=== PATIENT | male | born 1980 | race Caucasian/White ===

== ENCOUNTER 2018-04-22 09:19 | Emergency (ER) | payer OTHER ==
[2018-04-22] MEDS ORDERED: Ibuprofen 600 MG Tab PO ONE (09:33)
--- NOTE | 2018-04-22 09:35 | EDM.PDOC ---
ED HPI GENERAL MEDICAL PROBLEM - General Stated Complaint: FELL HURT ANKLE/SPLIT HEAD Time Seen by Provider: 04/22/18 09:34 Source of Information: Reports: Patient History Limitations: Reports: No Limitations - History of Present Illness INITIAL COMMENTS - FREE TEXT/NARRATIVE: Patient comes emergency department today with complaints of an injury to his right ankle. Just prior to arrival the patient was at work when he stepped into a hole falling injuring his right ankle as well as striking his scalp sustaining a laceration. He has no loss of consciousness. He denies a headache. No change in his visual acuity. No neck or back pain. No syncope. No change in his visual acuity. No paresthesias of his upper or lower extremity. No change in the functionality of his upper and lower extremities. His last tetanus immunization was approximately 3 years ago. He does complain of pain to the lateral aspect of his right ankle. He denies any paresthesias of the left lower extremity. He has not taken anything for pain prior to arrival. He is unable to bear weight due to pain. Right Head Pain Score (Numeric/FACES): 8 - Related Data Allergies Allergy/AdvReac Type Severity Reaction Status Date / Time No Known Allergies Allergy Verified 04/22/18 09:24 Home Meds: Home Meds traZODone HCl [Trazodone HCl] 50 mg PO BEDTIME 04/22/18 [History] Review of Systems - Review of Systems Review Of Systems: ROS reveals no pertinent complaints other than HPI. ED EXAM, GENERAL - Physical Exam Exam: See Below Exam Limited By: No Limitations General Appearance: Alert, WD/WN, No Apparent Distress Eye Exam: Bilateral Eye: EOMI, Normal Inspection, PERRL Ears: Normal External Exam, Normal TMs Nose: Normal Inspection, Normal Mucosa Throat/Mouth: Normal Inspection, Normal Oropharynx Head: Normocephalic, Other (On the right frontal scalp region is a transverse linear laceration that does extend minimally into the subcutaneous tissue that is approximately 3 cm in length no active bleeding. There is no bony deformity crepitus bogginess.) Neck: Normal Inspection, Supple, Non-Tender, Full Range of Motion. No: Tender Lateral, Tender Midline Respiratory/Chest: No Respiratory Distress, Lungs Clear, No Accessory Muscle Use Cardiovascular: Normal Peripheral Pulses, Regular Rate, Rhythm Peripheral Pulses: 2+: Radial (L), Radial (R), Posterior Tibial (L), Posterior Tibial (R), Dorsalis Pedis (L), Dorsalis Pedis (R) GI/Abdominal: Normal Bowel Sounds, Soft, Non-Tender Back Exam: Normal Inspection, Full Range of Motion. No: Muscle Spasm, Paraspinal Tenderness, Vertebral Tenderness Extremities: Non-Tender, No Pedal Edema, Normal Capillary Refill, Joint Swelling (swelling to the right lateral malleolus. ), Limited Range of Motion ( right ankle. ) Neurological: Alert, Oriented, CN II-XII Intact, Normal Cognition, Normal Reflexes, No Motor/Sensory Deficits Psychiatric: Normal Affect Skin Exam: Warm, Dry, Intact, Normal Color, No Rash Lymphatic: No Adenopathy ED TRAUMA EXTREMITY PROCEDURES - Laceration/Wound Repair Right Forehead Lac/Wound Length In cm: 3.1 (right cephalad scalp hair line) Appearance: Subcutaneous, Linear, Clean Distal NVT: Neuro & Vascular Intact Anesthetic Type: Local Local Anesthesia - Lidocaine (Xylocaine): 1% with EPI Local Anesthetic Volume: 3cc Skin Prep: Chlorhexidine (Hibiciens), Saline Exploration/Debridement/Repair: Wound Explored, In a Bloodless Field, Explored to Base, No Foreign Material Found Closed With: Sutures Suture Size: other (6-0, 6 total) Suture Type: Nylon, Interrupted Drain Placement: No Sterile Dressing Applied: Nurse Tetanus Status Addressed: Yes Complications: No Course - Vital Signs Last Recorded V/S: Last Vital Signs Temp 36.8 C 04/22/18 09:46 Pulse 82 04/22/18 09:46 Resp 18 04/22/18 09:46 BP 112/64 04/22/18 09:46 Pulse Ox 100 04/22/18 09:46 - Orders/Labs/Meds Meds: Medications Discontinued Medications Generic Name Dose Route Start Last Admin Trade Name Freq PRN Reason Stop Dose Admin Ibuprofen 600 mg 04/22/18 09:33 04/22/18 09:46 Motrin PO 04/22/18 09:34 600 mg ONETIME ONE Administration Lidocaine/Epinephrine 20 ml 04/22/18 09:48 04/22/18 09:56 Xylocaine 1% With Epinephrine 1:100,000 INJECT 04/22/18 09:49 20 ml ONETIME ONE Administration - Radiology Interpretation Free Text/Narrative:: Occult none displaced fracture distal fibula. - Re-Assessments/Exams Free Text/Narrative Re-Assessment/Exam: 04/22/18 09:43 Ibuprofen 600 mg by mouth. Ice to the ankle. Wound cleansed X-ray of the right ankle 04/22/18 19:37 Occult fracture to the right distal fibula. Laceration repair see note. Walking boot crutches and follow up with ortho in 7 days for recheck. Departure - Departure Time of Disposition: 10:19 Disposition: Home, Self-Care 01 Clinical Impression: Fibula fracture Qualifiers: Encounter type: initial encounter Fibula location: distal Fracture type: closed Fracture morphology: unspecified fracture morphology Laterality: right Qualified Code(s): S82.831A - Other fracture of upper and lower end of right fibula, initial encounter for closed fracture Scalp laceration Qualifiers: Encounter type: initial encounter Qualified Code(s): S01.01XA - Laceration without foreign body of scalp, initial encounter - Discharge Information Instructions: RICE for Routine Care of Injuries, [id number], Cast or Splint Care, Adult, [id number], Fibular Ankle Fracture Treated With or Without Immobilization, Adult, Laceration Care, Adult, [id number], Stitches, Haleigh, or Adhesive Wound Closure, [id number], Sutured Wound Care, [id number] Referrals: PCP,None [Primary Care Provider] - Forms: ED Department Discharge Additional Instructions: RICE therapy to the right ankle. Walking boot at all times. Crutches for comfort. Tylenol and or Ibuprofen as needed for pain. If pain not controlled with above. Willow 1 tablet every 6 hrs as needed for pain caution sedation. RX given to the patient. #15. Laceration Wash twice daily with soap and water allow to dry. Bacitracin and bandage until healed. Keep as clean as possible Watch for signs of infection. Sutures out 5-6 days. Follow up with ortho in 7 days. Return to the ED if new or worsening symptoms. - Assessment/Plan Assessment:: RIght fibula distal occult fracture. Laceration to the right cephalad forehead scalp. Plan: RICE therapy to the right ankle. Walking boot at all times. Crutches for comfort. Tylenol and or Ibuprofen as needed for pain. If pain not controlled with above. Willow 1 tablet every 6 hrs as needed for pain caution sedation. RX given to the patient. #15. Laceration Wash twice daily with soap and water allow to dry. Bacitracin and bandage until healed. Keep as clean as possible Watch for signs of infection. Sutures out 5-6 days. Follow up with ortho in 7 days. Return to the ED if new or worsening symptoms.
[2018-04-22] MEDS ORDERED: Lidocaine 1% with EPINEPHrine 1:100,000 20 ML MDV INJECT ONE (09:48)
--- NOTE | 2018-04-22 10:14 | CR ---
Clinical history: 38-year-old male injured right ankle (fell in hole). Interpretation: 3 views right ankle confirm soft tissue swelling and small ankle joint effusion. Subtle vertical lucent line distal diaphysis right fibula, laterally (oblique view only) suggests occult nondisplaced fracture. Note: This is a "soft" finding but suggests conservative management. No sign of other ankle fracture or disruption of the underlying tibiotalar mortise joint symmetry.
== END 2018-04-22 11:02 | disposition home or self-care (01) ==
LOC: DL.ED 09:19
DX: S82.831A Other fracture of upper and lower end of right fibula, initial encounter for closed fracture (principal); S01.01XA Laceration without foreign body of scalp, initial encounter; S01.80XA Unspecified open wound of other part of head, initial encounter; W19.XXXA Unspecified fall, initial encounter
CPT/HCPCS: 12013; 73610; 99283; A9270